=== PATIENT | female | born 1965 | race African-American/Black ===

== ENCOUNTER 2020-04-19 18:13 | Emergency (ER) | payer OTHER ==
[~2020-04-19] VITALS: Ht 172.7 cm; Wt 131.1 kg
[~2020-04-19 18:13] MED LIST: CALCIUM 500 +1 EAC5; FLEXERIL PO; GLUMETZA500 PO; IBUPROFEN 600600 M1 PO; MAGOX 400400 MG PO; MULTIVITAMINS1 EAC7 PO; NAPROSYN500 MG PO; NORCO 5-325 TA1 EACH PO; PERCOCET 5-3251 EACH PO; PREDNISONE 20 M20 MG PO; SYNTHROID125 MCG PO; VALIUM2 MG PO
[2020-04-19] MEDS ORDERED: BASAGLAR K100 UNIT/1 SUBQ (19:18)
[2020-04-19] MEDS ORDERED: BACTRIM DS TAB1 EAC1 PO (19:55)
[2020-04-19] MEDS ORDERED: CLEOCIN HCL300 MG PO (20:00)
[2020-04-19 20:01] VITALS: BP 136/65
== END 2020-04-19 20:12 | disposition home or self-care (01) ==
LOC: ER 18:13
DX: L03.113 Cellulitis of right upper limb (principal); E11.9 Type 2 diabetes mellitus without complications; Z90.89 Acquired absence of other organs; Z90.711 Acquired absence of uterus with remaining cervical stump; Z79.899 Other long term (current) drug therapy; Z79.4 Long term (current) use of insulin; Z88.2 Allergy status to sulfonamides

== ENCOUNTER 2021-04-30 14:18 | Emergency (ER) | payer OTHER ==
[~2021-04-30] VITALS: Ht 172.7 cm; Wt 127.0 kg
[~2021-04-30 14:18] MED LIST changes: +BACTRIM DS TAB1 EAC1 PO; +BASAGLAR K100 UNIT/1 SUBQ; +CLEOCIN HCL300 MG PO
[2021-04-30] MEDS ORDERED: LANTUS SUBQ (14:46)
[2021-04-30] MEDS ORDERED: FLEXERIL PO (16:54)
[2021-04-30 17:01] VITALS: BP 171/74
== END 2021-04-30 17:01 | disposition home or self-care (01) ==
LOC: ER 14:18
DX: S29.012A Strain of muscle and tendon of back wall of thorax, initial encounter (principal); V49.49XA Driver injured in collision with other motor vehicles in traffic accident, initial encounter; E11.9 Type 2 diabetes mellitus without complications; Z90.710 Acquired absence of both cervix and uterus; Z90.89 Acquired absence of other organs; Z88.2 Allergy status to sulfonamides; Y93.19 Activity, other involving water and watercraft; Y92.89 Other specified places as the place of occurrence of the external cause; Y99.8 Other external cause status